=== PATIENT | female | born 2000 | race American Indian/Alaskan Native ===

== ENCOUNTER 2022-01-27 01:47 | Inpatient (IN) | payer MEDICAID ==
[2022-01-27] MEDS ORDERED: METHYLERGONOVINE MALEATE 0.2 MG/ML VIAL IM PRN (02:54)
[2022-01-27] MEDS ORDERED: TERBUTALINE 1 MG/1 ML INJ SUB-Q PRN (02:54)
[2022-01-27] MEDS ORDERED: fentaNYL 100 MCG/2 ML INJ IV PRN (02:54)
[2022-01-27] MEDS ORDERED: LOPERAMIDE 2 MG CAP PO PRN (02:54)
[2022-01-27] MEDS ORDERED: BUTORPHANOL 2 MG/1 ML INJ IV PRN (02:54)
[2022-01-27] MEDS ORDERED: ONDANSETRON 4 MG/2 ML INJ IV PRN (02:54)
[2022-01-27] MEDS ORDERED: CARBOPROST TROMETHAMINE 250 MCG/1 ML INJ IM PRN (02:54)
[2022-01-27] MEDS ORDERED: MINERAL OIL 30 ML ORAL LIQD PO PRN (02:54)
[2022-01-27] MEDS ORDERED: ePHEDrine SULFATE 50 MG/1 ML INJ IV PRN ×2 (02:54→04:57)
[2022-01-27] MEDS ORDERED: miSOPROStol 200 MCG TAB PR PRN (02:54)
[2022-01-27] MEDS ORDERED: OXYTOCIN 10 UNIT/1 ML INJ IM PRN (02:54)
[2022-01-27] MEDS ORDERED: ACETAMINOPHEN 325 MG TAB PO PRN ×2 (02:54→10:45)
[2022-01-27] MEDS ORDERED: LIDOCAINE (2%) 20 MG/1 ML VIAL 20 ML MDV INFILTRATI ONE ×2 (02:54→10:19)
[2022-01-27] MEDS ORDERED: OXYTOCIN DRIP 30 UNITS/500 ML BAG IV SCH (03:00)
[2022-01-27 03:34] LABS: Hematocrit 34.1 % (30.3-42.9); Hemoglobin 11.2 gm/dl (10.1-14.3); Mean Corpuscular HGB Conc 33 % (30-34); Mean Corpuscular Volume 81 fl (79-97); Platelet Count 293 K/mm3 (140-440); Red Blood Count 4.19 M/mm3 (3.65-5.03); Red Cell Distribution Width 16.1 % (13.2-15.2)
[2022-01-27] MEDS: LACTATED RINGERS 1,000 ML IV SCH ×3 (03:44→05:56)
[2022-01-27] MEDS ORDERED: fentaNYL-BUPIV 2 MCG/ML-0.125% 200 MCG/100 ML BAG EPIDURAL SCH (04:57)
[2022-01-27] MEDS ORDERED: NALOXONE 0.4 MG/1 ML INJ IV PRN (04:57)
--- NOTE | 2022-01-27 05:51 | Anesthesia Consultation ---
Anesthesia Consult and Med Hx Date of service: 01/27/22 - Airway Anesthetic Teeth Evaluation: Good ROM Head & Neck: Adequate Mental/Hyoid Distance: Adequate Mallampati Class: Class II - Pulmonary Exam CTA: Yes - Cardiac Exam Cardiac Exam: RRR - Pre-Operative Health Status ASA Pre-Surgery Classification: ASA2 Proposed Anesthetic Plan: Epidural - Pulmonary Hx Smoking: No Hx Asthma: No Hx Respiratory Symptoms: No SOB: No COPD: No Home Oxygen Therapy: No Hx Pneumonia: No Hx Sleep Apnea: No - Cardiovascular System Hx Hypertension: No Hx Coronary Artery Disease: No Hx Heart Attack/AMI: No Hx Angina: No Hx Percutaneous Transluminal Coronary Angioplasty (PTCA): No Hx Cardia Arrhythmia: No Hx Pacemaker: No Hx Internal Defibrillator: No Hx Valvular Heart Disease: No Hx Heart Murmur: No Hx Peripheral Vascular Disease: No - Central Nervous System Hx Neuromuscular Disorder: No Hx Seizures: No CVA: No Hx Back Pain: No Hx Psychiatric Problems: No - Gastrointestinal Hx Ulcer: No Hx Gastroesophageal Reflux Disease: No - Endocrine Hx Renal Disease: No Hx End Stage Renal Disease: No Hx Cirrhosis: No Hx Liver Disease: No Hx Insulin Dependent Diabetes: No Hx Non-Insulin Dependent Diabetes: No Hx Hypothyroidism: No Hx Hyperthyroidism: No - Hematic Hx Anemia: No Hx Sickle Cell Disease: No - Other Systems Hx Alcohol Use: No Hx Substance Use: No Hx Cancer: No Hx Obesity: No
--- NOTE | 2022-01-27 05:52 | Progress Note ---
Labor Epidural - Labor Epidural Start Time: 05:07 Stop Time: 05:12 Performed by:: JOEL VERAS Procedure: Epidural Requested for Labor Pain. H&P and PT Chart reviewed and consent obtained. Time out performed and the procedure was explained, all questions answered. Patient was placed in a sitting position with monitors applied. The PTs back was prepped and draped in usual sterile fashion. The Skin was localized with 3 mL of 1% lidocaine at L3-L4. A 17-gauge Touhy epidural needle was advanced to KAMALJIT with saline at 7 cm and no blood/CSF was noted via epidural needle. Epidural catheter was advanced to 12 cm. There was negative aspiration for blood and CSF in the catheter and negative response to a test dose of 3 ml 1.5% lidocaine w/ Epi and a sterile dressing was applied Patient tolerated the procedure well and there were no immediate complications noted.
--- NOTE | 2022-01-27 05:52 | Anesthesia Day of Surgery ---
Anesthesia Day of Surgery - Day of Surgery Patient Examined: Yes Patient H&P Reviewed: Yes Patient is NPO: Yes Beta Blockers: No Cardiac Clearance: No Pulmonary Clearance: No Sai's Test: N/A
--- NOTE | 2022-01-27 06:47 | History and Physical Report ---
History of Present Illness Date of examination: 01/27/22 Date of admission: 01/27/22 03:17 Chief complaint: My jaden broke History of present illness: 21 y/o , presents to labor and delivery on 01/27/2022 with rupture of membranes. She had her care but there are no records available. Past History Past Medical History: no pertinent history Past Surgical History: no surgical history VISITING NURSE History: chlamydia Family/Genetic History: none Social history: no significant social history - Obstetrical History Expected Date of Delivery: 01/16/22 Actual Gestation: 41 Week(s) 4 Day(s) : 2 Para: 0 Spontaneous Abortions: 1 Number of Living Children: 0 Medications and Allergies Allergies Allergy/AdvReac Type Severity Reaction Status Date / Time No Known Allergies Allergy Unverified 01/27/22 02:51 Active Meds: Active Medications Acetaminophen (Acetaminophen 325 Mg Tab) 650 mg PO Q4H PRN PRN Reason: Pain, Mild (1-3) Butorphanol Tartrate (Butorphanol 2 Mg/1 Ml Inj) 1 mg IV Q2H PRN PRN Reason: Pain, Moderate(4-6) LABOR PAIN Carboprost Tromethamine (Carboprost Tromethamine 250 Mcg/1 Ml Inj) 250 mcg IM ONCE PRN PRN Reason: Uterine Bleeding Ephedrine Sulfate (Ephedrine Sulfate 50 Mg/1 Ml Inj) 10 mg IV Q2M PRN PRN Reason: Hypotension Fentanyl (Fentanyl 100 Mcg/2 Ml Inj) 100 mcg IV Q2H PRN PRN Reason: Pain,Severe (7-10) LABOR PAIN Last Admin: 01/27/22 03:53 Dose: 100 mcg Lactated Ringer's (Lactated Ringers) 1,000 mls @ 125 mls/hr IV DIRECT GEE Last Admin: 01/27/22 05:56 Dose: 125 mls/hr Oxytocin/Sodium Chloride (Pitocin/Ns 30 Unit/500ml) 30 units in 500 mls @ 40 mls/hr IV TITR GEE; Protocol Fentanyl/Bupivacaine/Sodium Chlor (Fentanyl-Bupiv 2 Mcg/Ml-0.125%) 200 mcg in 100 mls @ 12 mls/hr EPIDURAL TITR GEE; Protocol Last Admin: 01/27/22 05:54 Dose: 12 mls/hr Loperamide HCl (Loperamide 2 Mg Cap) 2 mg PO ONCE PRN PRN Reason: give with Hemabate Methylergonovine Maleate (Methylergonovine Maleate 0.2 Mg/Ml Vial) 0.2 mg IM ONCE PRN PRN Reason: Uterine Bleeding Mineral Oil (Mineral Oil 30 Ml Oral Liqd) 30 ml PO QHS PRN PRN Reason: Constipation Misoprostol (Misoprostol 200 Mcg Tab) 800 mcg CO ONCE PRN PRN Reason: Uterine Bleeding Naloxone HCl (Naloxone 0.4 Mg/1 Ml Inj) 0.2 mg IV Q5MIN PRN PRN Reason: Respiratory sedation Ondansetron HCl (Ondansetron 4 Mg/2 Ml Inj) 4 mg IV Q8H PRN PRN Reason: Nausea And Vomiting Oxytocin (Oxytocin 10 Unit/1 Ml Inj) 10 unit IM ONCE PRN PRN Reason: Uterine Bleeding Terbutaline Sulfate (Terbutaline 1 Mg/1 Ml Inj) 0.25 mg SUB-Q ONCE PRN PRN Reason: Hyperstimulation/Hypertonicity Review of Systems All systems: negative - Vital Signs Vital signs: Vital Signs Pulse Pulse Ox 99 H 99 01/27/22 02:11 01/27/22 02:11 Temp Pulse Resp BP Pulse Ox 97.9 F 85 18 106/55 99 01/27/22 04:36 01/27/22 06:39 01/27/22 02:22 01/27/22 06:37 01/27/22 06:39 - Physical Exam Cardiovascular: Regular rate Abdomen: Positive: soft Genitourinary (Female): Positive: normal external genitalia Vulva: both: normal Uterus: Positive: enlarged Deep Tendon Reflex Grade: Normal +2 - Obstetrical FHR: category 1 Uterine Contraction Monitor Mode: External Uterine Contraction Pattern: Regular Uterine Contraction Intensity: Strong/Firm Results Result Diagrams: 01/27/22 03:15 Abnormal lab results 01/27/22 Range/Units 03:15 WBC 11.7 H (4.5-11.0) K/mm3 MCH 27 L (28-32) pg RDW 16.1 H (13.2-15.2) % All other labs normal. Assessment and Plan A: Active labor at 41 + weeks P: Pitocin augmentation Expect
[2022-01-27] MEDS ORDERED: LANOLIN/ZINC/DIMETHICONE (LANSINOH) 7 GM TP PRN (10:45)
[2022-01-27] MEDS ORDERED: MAGNESIUM HYDROXIDE (MOM) ORAL LIQD UDC PO PRN (10:45)
[2022-01-27] MEDS ORDERED: WITCH HAZEL/ GLYCERIN PAD TP PRN (10:45)
[2022-01-27] MEDS ORDERED: diphenhydrAMINE 25 MG CAP PO PRN (10:45)
[2022-01-27] MEDS ORDERED: oxyCODONE /ACETAMINOPHEN 5-325MG TAB PO PRN (10:45)
--- NOTE | 2022-01-27 10:45 | Procedure Note ---
OB Delivery Note - Delivery Date of Delivery: 01/27/22 Surgeon: KARYN GARCIA Estimated blood loss: 100cc - Vaginal Delivery presentation: vertex Delivery position: OA Delivery induction: none Delivery monitor: external FHT Route of delivery: Delivery placenta: spontaneous Delivery cord: 3 umbilical vessels Delivery laceration: 1st degree, other (left labial) Delivery repair: vicryl (2-0 and 3-0 vicryl) - A at 1 minute: 8 at 5 minutes: 9 Infant Gender: Female (6#15 oz)
[2022-01-27] MEDS: IBUPROFEN 800 MG TAB PO SCH ×2 (20:54→23:00)
[2022-01-27 23:23] LABS: Hematocrit 28.2 % (30.3-42.9); Hemoglobin 9.2 gm/dl (10.1-14.3)
[2022-01-28] MEDS: IBUPROFEN 800 MG TAB PO SCH ×3 (05:42→23:45)
--- NOTE | 2022-01-28 07:47 | Progress Note ---
Assessment and Plan A: PPD # 1 - stable P: Discharge home in am Discharge instructions given Subjective - Subjective Date of service: 01/28/22 Principal diagnosis: PPD#1 Interval history: 21 y/o , presents to labor and delivery on 01/27/2022 with rupture of membranes. She had her care but there are no records available. Patient reports: appetite normal : doing well Objective - Vital Signs Latest vital signs: Vital Signs Temp Pulse Resp BP Pulse Ox Pulse Ox 01/28/22 00:42 98.4 F 78 18 114/60 100 01/27/22 20:19 98 01/27/22 15:48 98.0 F 75 16 118/62 97 01/27/22 12:20 98 01/27/22 12:17 98.2 F 78 18 140/67 97 01/27/22 11:44 95 H 100 01/27/22 11:39 93 H 100 01/27/22 11:37 106 H 127/66 01/27/22 11:34 92 H 97 01/27/22 11:29 92 H 99 01/27/22 11:24 101 H 97 01/27/22 11:22 93 H 138/66 01/27/22 11:19 85 98 01/27/22 11:14 93 H 98 01/27/22 11:09 100 H 99 01/27/22 11:07 74 92 01/27/22 11:04 99 H 99 01/27/22 10:59 97 H 99 01/27/22 10:54 108 H 99 01/27/22 10:52 103 H 143/80 01/27/22 10:49 105 H 95 01/27/22 10:44 106 H 99 01/27/22 10:39 108 H 100 01/27/22 10:37 105 H 154/96 01/27/22 10:34 116 H 99 01/27/22 10:29 114 H 99 01/27/22 10:24 109 H 100 01/27/22 10:22 110 H 148/96 01/27/22 10:20 123 H 93 01/27/22 10:19 107 H 99 01/27/22 10:14 109 H 100 01/27/22 10:09 113 H 100 01/27/22 10:04 135 H 98 01/27/22 09:59 147 H 100 01/27/22 09:54 138 H 98 01/27/22 09:53 125 H 117/76 01/27/22 09:49 122 H 98 01/27/22 09:44 117 H 98 01/27/22 09:39 121 H 98 01/27/22 09:37 144 H 139/70 01/27/22 09:34 120 H 99 01/27/22 09:32 84 81 L 01/27/22 09:29 134 H 98 01/27/22 09:24 115 H 97 01/27/22 09:22 125 H 134/73 01/27/22 09:19 127 H 98 01/27/22 09:14 107 H 99 01/27/22 09:09 105 H 100 01/27/22 09:04 116 H 99 01/27/22 08:59 114 H 98 01/27/22 08:54 106 H 100 01/27/22 08:53 105 H 138/105 01/27/22 08:49 85 100 01/27/22 08:44 100 H 100 01/27/22 08:39 95 H 100 01/27/22 08:38 88 136/77 01/27/22 08:34 95 H 100 01/27/22 08:29 91 H 100 01/27/22 08:24 82 139/86 98 01/27/22 08:19 107 H 99 01/27/22 08:14 95 H 97 01/27/22 08:09 107 H 100 01/27/22 08:07 90 133/74 01/27/22 08:04 97 H 99 01/27/22 07:59 103 H 99 01/27/22 07:54 91 H 99 01/27/22 07:53 81 123/60 01/27/22 07:49 84 100 Intake and Output 01/27/22 01/28/22 01/28/22 22:59 06:59 14:59 Intake Total 460 Output Total 800 Balance -340 Intake: IV 20 Left Antecubital 20 Oral 440 Output: Urine 800 Void 800 Other: Total, Intake Amount 200 Total, Output Amount 800 Voiding Method Toilet # Voids Void 1 - Exam Breasts: Present: deferred Cardiovascular: Present: Regular rate Lungs: Present: Clear to auscultation Abdomen: Present: soft Vulva: both: normal Uterus: Present: fundal height below umbilicus Extremities: Present: normal Deep Tendon Reflex Grade: Normal +2 - Labs Labs: Abnormal lab results 01/27/22 Range/Units 23:07 Hgb 9.2 L (10.1-14.3) gm/dl Hct 28.2 L (30.3-42.9) %
--- NOTE | 2022-01-28 07:49 | Discharge Summary ---
Providers - Providers Date of Admission: 01/27/22 03:17 Date of discharge: 01/29/22 Attending physician: JUAN CARLOS MARMOLEJO Primary care physician: QUARTER DOPER Hospitalization Reason for admission: active labor Delivery: Laceration: 1st degree Discharge diagnosis: IUP at term delivered [place] baby: female Condition at discharge: Good Disposition: 01 HOME / SELF CARE / HOMELESS Plan - Provider Discharge Summary Activity: routine, no sex for 6 weeks, no strenuous exercise Diet: routine Instructions: routine Additional instructions: [] Smoking cessation referral if applicable(refer to patient education folder for contact #) [] Refer to [facility] Booklet Call your doctor immediately for: * Fever > 100.5 * Heavy vaginal bleeding ( >1 pad per hour) * Severe persistent headache * Shortness of breath * Reddened, hot, painful area to leg or breast * Drainage or odor from incision. * Keep incision clean and dry at all times and follow doctor's instructions regarding bathing/showering - Follow up plan Follow up: PRIMARY CAREMD [Primary Care Provider] - 6 Weeks
--- NOTE | 2022-01-28 12:58 | Post Anesthesia Evaluation ---
- Post Anesthesia Evaluation Patient Participated: Yes Airway Patent: Yes Stable Respiratory Function: Yes Nausea/Vomiting: No Temp > 96.8F: Yes Pain Manageable: Yes Adequeate Hydration: Yes Anesthesia Complications: No Block Receding Appropriately: Yes Patient on Ventilator: No
[2022-01-29 18:05] VITALS: BP 121/67
== END 2022-01-29 17:50 | disposition home or self-care (01) | DRG 775 ==
LOC: EDBD 01:47 → APU 01:47 → TRG 01:47 → APU 03:17 → LD 03:37 → OB 12:05
PROVIDERS: ADMIT Obstetrics & Gynecology; ATTEND Obstetrics & Gynecology
PROC: 10E0XZZ Delivery of Products of Conception, External Approach (ICD-10-PCS; principal; 2022-01-27)
PROC: 0HQ9XZZ Repair Perineum Skin, External Approach (ICD-10-PCS; 2022-01-27)
PROC: 3E0R3BZ Introduction of Anesthetic Agent into Spinal Canal, Percutaneous Approach (ICD-10-PCS; 2022-01-27)
PROC: 00HU33Z Insertion of Infusion Device into Spinal Canal, Percutaneous Approach (ICD-10-PCS; 2022-01-27)
DX: O48.0 Post-term pregnancy (principal); O70.0 First degree perineal laceration during delivery; Z3A.41 41 weeks gestation of pregnancy; Z37.0 Single live birth; Z20.822 Contact with and (suspected) exposure to COVID-19
CPT/HCPCS: 36415; 85014; 85018; 85027; 86850; 86900; 86901; 96360; 96361; G0378; J3490; J3010; J7120; U0003